=== PATIENT | male | born 1955 | race Caucasian/White ===

== ENCOUNTER 2023-02-01 10:25 | Emergency (ER) | payer MEDICARE, BC ==
[2023-02-01 10:54] VITALS: BP 98/66; TEMP 98
--- NOTE | 2023-02-01 12:44 | ED ---
General Adult HPI - General Chief complaint: Urogenital Stated complaint: Retaining Urine Time Seen by Provider: 02/01/23 11:04 Source: patient, RN notes reviewed Mode of arrival: ambulatory Limitations: no limitations - History of Present Illness Initial comments: 67-year-old male with no significant past medical history presents the emergency department with a chief complaint of urinary retention. She reports that he has had increased urinary frequency over the last couple weeks prompting him to make an appointment with a urologist. He reports that he has not had a true urinary void since yesterday morning. It is been approximately 24 hours. He denies any known fevers, chills, flank pain, nausea, vomiting. Patient reports he will see a urologist tomorrow. - Related Data Allergies Allergy/AdvReac Type Severity Reaction Status Date / Time No Known Allergies Allergy Verified 02/01/23 10:34 Review of Systems ROS Statement: Those systems with pertinent positive or pertinent negative responses have been documented in the HPI. ROS Other: All systems not noted in ROS Statement are negative. Past Medical History Past Medical History: COPD History of Any Multi-Drug Resistant Organisms: None Reported Past Surgical History: Appendectomy Past Psychological History: No Psychological Hx Reported Smoking Status: Current every day smoker Past Alcohol Use History: Rare Past Drug Use History: Marijuana General Exam - General Exam Comments Initial Comments: General: Alert, in no acute distress Head: atraumatic normocephalic. Eyes PERRL, EOMI intact, mucous membranes moist Respiratory: Lungs clear to auscultation bilaterally Cardiovascular: Regular rate and rhythm Abdominal: Soft without guarding or rebound Extremities: Normal inspection with full range of motion and normal capillary refill Neuroogic: alert and oriented 3, CN II-XII intact, able to ambulate with steady gait Skin: warm dry and intact with normal color Fully back with approximately 1400 mL of dark, brooke urine Limitations: no limitations Course Vital Signs 02/01/23 02/01/23 10:32 13:22 Temperature 98 F Pulse Rate 121 H 103 H Respiratory 18 20 Rate Blood Pressure 98/66 O2 Sat by Pulse 94 L 95 Oximetry Medical Decision Making - Medical Decision Making Was pt. sent in by a medical professional or institution (, PA, GIS SCIENTIST, urgent care, hospital, or senior care...) When possible be specific @ -[No] Did you speak to anyone other than the patient for history (EMS, parent, family, police, friend...)? What history was obtained from this source @ -[No] Did you review nursing and triage notes (agree or disagree)? Why? @ -[I reviewed and agree with nursing and triage notes] Were old charts reviewed (outside hosp., previous admission, EMS record, old EKG, old radiological studies, urgent care reports/EKG's, senior care records)? Report findings @ -[No old charts were reviewed] Differential Diagnosis (chest pain, altered mental status, abdominal pain women, abdominal pain men, vaginal bleeding, weakness, fever, dyspnea, syncope, hea dache, dizziness, GI bleed, back pain, seizure, CVA, palpatations, mental health, musculoskeletal)? @ -[not applicable] EKG interpreted by me (3pts min.). @ -[As above] X-rays interpreted by me (1pt min.). @ -[None done] CT interpreted by me (1pt min.). @ -[None done] U/S interpreted by me (1pt. min.). @ -[None done] What testing was considered but not performed or refused? (CT, X-rays, U/S, labs)? Why? @ -[None] What meds were considered but not given or refused? Why? @ -[None] Did you discuss the management of the patient with other professionals (professionals i.e. , PA, GIS SCIENTIST, lab, RT, psych nurse, psychiatric social worker, lens blocker, teacher, commercial account officer, mattress spring encaser)? Give summary @ -[No] Was smoking cessation discussed for >3mins.? @ -[No] Was critical care preformed (if so, how long)? @ -[No] Were there social determinants of health that impacted care today? How? (Homelessness, low income, unemployed, alcoholism, drug addiction, transportation, low edu. Level, literacy, decrease access to med. care, group home, rehab)? @ -[No] Was there de-escalation of care discussed even if they declined (Discuss DNR or withdrawal of care, Hospice)? DNR status @ -[No] What co-morbidities impacted this encounter? (DM, HTN, Smoking, COPD, CAD, Cancer, CVA, ARF, Chemo, Hep., AIDS, mental health diagnosis, sleep apnea, morbid obesity)? @ -[None] Was patient admitted / discharged? Hospital course, mention meds given and route, prescriptions, significant lab abnormalities, going to OR and other pertinent info. @ Discharged. This is a 67-year-old male who presents the emergency department with urinary retention. Patient's initial bladder scan over 900. Patient had Zavaleta placed with approximately 1400 mL of dark, clear urine output. Patient tolerated well. Patient has urology appointment tomorrow. Urinalysis is negative for nitrates, leukocyte esterase however there is trace bacteria. Cultures pending. Patient be discharged home in stable condition. Return precautions discussed. Case discussed with Dr. noble Terrance who agrees with plan of care Undiagnosed new problem with uncertain prognosis? @ -[No] Drug Therapy requiring intensive monitoring for toxicity (Heparin, Nitro, Insulin, Cardizem)? @ -[No] Were any procedures done? @ -[No] Diagnosis/symptom? @ -Urinary Retention Acute, or Chronic, or Acute on Chronic? @ -Acute Uncomplicated (without systemic symptoms) or Complicated (systemic symptoms)? @ -Uncomplicated Side effects of treatment? @ -[No] Exacerbation, Progression, or Severe Exacerbation? @ -[No] Poses a threat to life or bodily function? How? (Chest pain, USA, ID, pneumonia, PE, COPD, DKA, ARF, appy, cholecystitis, CVA, Diverticulitis, Homicidal, Suicidal, threat to staff... and all critical care pts) @ -Low likelihood - Lab Data Lab Results 02/01/23 Range/Units 11:34 Urine Color Light [place] Urine Appearance Clear (Clear) Urine pH 5.5 (5.0-8.0) Ur Specific [place] >1.030 (1.001-1.035) Urine Protein Trace H (Negative) Urine Glucose (UA) Negative (Negative) Urine Ketones Trace (Negative) Urine Blood Moderate (Negative) Urine Nitrite Negative (Negative) Urine Bilirubin Negative (Negative) Urine Urobilinogen <2.0 (<2.0) mg/dL Ur Leukocyte Esterase Negative (Negative) Urine RBC 22 H (0-5) /hpf Urine WBC 1 (0-5) /hpf Urine Bacteria Rare H (None) /hpf Hyaline Casts 3 H (0-2) /lpf Urine Mucus Few H (None) /hpf Disposition Clinical Impression: Urinary retention Disposition: HOME SELF-CARE Condition: Stable Instructions (If sedation given, give patient instructions): Urinary Retention in Men (ED), Enlarged Prostate (BPH) (ED), Zavaleta Catheter Placement and Care (ED), How to Change a Catheter Drainage Bag (DC) Additional Instructions: Please follow up with Urologist tomorrow Please return to the emergency department if fever or bloody urine develop Is patient prescribed a controlled substance at d/c from ED?: No Referrals: Nabil Henson [Primary Care Provider] - 1-2 days Time of Disposition: 12:44
[2023-02-01 12:54] LABS: Bacteria,Urine Rare /hpf; Hyaline Casts,Urine 3 /lpf (0-2); Mucus,Urine Few /hpf; RBC,Urine 22 /hpf (0-5); WBC,Urine 1 /hpf (0-5)
[2023-02-01 12:57] LABS: Appearance,Urine Clear (Clear); Color,Urine Light Orange; PH, Urine 5.5 (5.0-8.0); Protein,Urine Trace (Negative); Specific Gravity,Urine >1.030 (1.001-1.035)
[2023-02-01 12:58] LABS: Bilirubin,Urine Negative (Negative); Blood,Urine Moderate (Negative); Glucose,Urine (UA) Negative (Negative); Ketones,Urine Trace (Negative); Leukocyte Esterase,Urine Negative (Negative); Nitrite,Urine Negative (Negative); Urobilinogen,Urine <2.0 mg/dL (<2.0)
[2023-02-01 13:34] VITALS: PULSE 103; RESP 20
== END 2023-02-01 13:23 | disposition home or self-care (01) ==
LOC: EC 10:25
DX: R33.9 Retention of urine, unspecified (principal); J44.9 Chronic obstructive pulmonary disease, unspecified; F17.200 Nicotine dependence, unspecified, uncomplicated; F12.90 Cannabis use, unspecified, uncomplicated
CPT/HCPCS: 81001; 99283

== ENCOUNTER 2023-02-04 21:10 | Inpatient (IN) | payer MEDICARE, BC ==
--- NOTE | 2023-02-04 21:25 | ED ---
Chest Pain HPI - General Stated Complaint: BERNABE Time Seen by Provider: 02/04/23 21:18 Source: RN notes reviewed, old records reviewed Mode of arrival: EMS Limitations: altered mental status, physical limitation - History of Present Illness Initial Comments: This is a 67-year-old male DF for significant chest pain shortness of breath feeling of near syncope. Patient's brought in by EMS for the symptoms. Patient is found to be in significant SVT heart rate in the 200s prior to arrival. That spontaneous resolved. Getting IV with EMS and patient presents for persistent persistent chest pain shortness of breath, no heart history no history of S PT or arrhythmia, no recent fevers cough or congestion patient does have shortness of breath with history of COPD MD Complaint: chest pain -: hour(s) Onset: during rest, during exertion Pain Location: substernal Pain Radiation: none Severity: severe Severity scale (1-10): 10 Quality: tightness, heaviness Consistency: constant Improves With: nothing Worsens With: nothing Context: recent illness Anginal Symptoms: nausea, diaphoresis, dyspnea, sense of impending doom Other Symptoms: palpitations Treatments Prior to Arrival: none - Related Data Home Medications Medication Instructions Recorded Confirmed Albuterol Sulfate [Albuterol 2 puff PO RT-Q4H PRN 02/05/23 02/05/23 Sulfate Hfa] Ipratropium Nebulized [Atrovent 0.5 mg INHALATION RT-Q8H 02/05/23 02/05/23 Nebulized 0.2 MG/ML] Tamsulosin HCl [Flomax] 0.4 mg PO DAILY 02/05/23 02/05/23 Previous Rx's Medication Instructions Recorded Benzonatate [Tessalon Perles] 100 mg PO TID PRN #10 cap 02/07/23 Metoprolol Tartrate [Lopressor] 25 mg PO BID #60 tab 02/07/23 Nicotine 21Mg/24Hr Patch [Habitrol] 1 patch TRANSDERM DAILY #5 patch 02/07/23 Omeprazole [PriLOSEC] 20 mg PO AC-BID #60 cap 02/07/23 predniSONE 10 mg PO DIRECTED #40 tab 02/07/23 Allergies Allergy/AdvReac Type Severity Reaction Status Date / Time No Known Allergies Allergy Verified 02/05/23 08:00 Review of Systems ROS Statement: Those systems with pertinent positive or pertinent negative responses have been documented in the HPI. ROS Other: All systems not noted in ROS Statement are negative. EKG Findings - EKG Comments: EKG Findings:: EKG is sinus tachycardia 116 LA 150 QRS 71 QTC 344 Past Medical History Past Medical History: COPD History of Any Multi-Drug Resistant Organisms: None Reported Past Surgical History: Appendectomy Past Psychological History: No Psychological Hx Reported Smoking Status: Current every day smoker Past Alcohol Use History: Rare Past Drug Use History: Marijuana General Exam General appearance: alert, in no apparent distress, anxious, in distress Head exam: Present: atraumatic, normocephalic, normal inspection Eye exam: Present: normal appearance, PERRL, EOMI. Absent: scleral icterus, conjunctival injection, periorbital swelling ENT exam: Present: normal exam, mucous membranes moist Neck exam: Present: normal inspection. Absent: tenderness, meningismus, lymphadenopathy Respiratory exam: Present: normal lung sounds bilaterally. Absent: respiratory distress, wheezes, rales, rhonchi, stridor Cardiovascular Exam: Present: normal rhythm, tachycardia, normal heart sounds. Absent: systolic murmur, diastolic murmur, rubs, gallop, clicks GI/Abdominal exam: Present: soft, normal bowel sounds. Absent: distended, tenderness, guarding, rebound, rigid Extremities exam: Present: normal inspection, full ROM, normal capillary refill. Absent: tenderness, pedal edema, joint swelling, calf tenderness Back exam: Present: normal inspection Neurological exam: Present: alert, oriented X3, CN II-XII intact Psychiatric exam: Present: normal affect, normal mood Skin exam: Present: warm, dry, intact, normal color. Absent: rash Course Vital Signs 02/04/23 02/04/23 02/04/23 21:13 22:18 22:29 Temperature 97.7 F Pulse Rate 119 H 108 H 114 H Respiratory 24 Rate Blood Pressure 165/98 O2 Sat by Pulse 98 Oximetry 02/04/23 02/05/23 02/05/23 23:00 00:00 00:54 Temperature 98.0 F Pulse Rate 100 109 H 105 H Respiratory 28 H 21 18 Rate Blood Pressure 133/73 156/78 146/78 O2 Sat by Pulse 96 95 97 Oximetry 02/05/23 02/05/23 02/05/23 00:56 01:04 02:00 Temperature Pulse Rate 109 H 110 H 97 Respiratory 20 Rate Blood Pressure 121/60 O2 Sat by Pulse 97 Oximetry 02/05/23 02/05/23 02/05/23 04:15 04:26 08:00 Temperature Pulse Rate 112 H 114 H 115 H Respiratory 32 H Rate Blood Pressure 163/75 O2 Sat by Pulse 90 L Oximetry 02/05/23 02/05/23 02/05/23 08:02 08:15 09:00 Temperature Pulse Rate 114 H 112 H 100 Respiratory 24 Rate Blood Pressure 110/60 O2 Sat by Pulse 94 L 92 L Oximetry 02/05/23 02/05/23 02/05/23 10:00 11:14 11:29 Temperature Pulse Rate 92 101 H 102 H Respiratory 24 Rate Blood Pressure 117/60 O2 Sat by Pulse 97 Oximetry 02/05/23 02/05/23 02/05/23 13:00 14:00 15:22 Temperature Pulse Rate 105 H 98 89 Respiratory 20 20 23 Rate Blood Pressure 126/67 165/86 156/68 O2 Sat by Pulse 95 96 96 Oximetry 02/05/23 02/05/23 15:30 15:43 Temperature Pulse Rate 92 98 Respiratory Rate Blood Pressure O2 Sat by Pulse Oximetry - Reevaluation(s) Reevaluation #1: 02/04/23 23:22 Medical record is reviewed Reevaluation #2: 02/04/23 23:22 Patient symptoms are improving, no recurrent SVT was so short of breath chest pain Reevaluation #3: 02/04/23 23:22 Patient informed of results and questions answered Reevaluation #4: 02/04/23 23:22 Was pt. sent in by a medical professional or institution (, PA, CATERER'S AIDE, urgent care, hospital, or halfway...) When possible be specific @ -no Did you speak to anyone other than the patient for history (EMS, parent, family, police, friend...)? What history was obtained from this source @ -no Did you review nursing and triage notes (agree or disagree)? Why? @ -agree Are old charts reviewed (outside hosp., previous admission, EMS record, old EKG, old radiological studies, urgent care reports/EKG's, halfway records)? Report findings @ -yes Differential Diagnosis (chest pain, altered mental status, abdominal pain women, abdominal pain men, vaginal bleeding, weakness, fever, dyspnea, syncope, headache, dizziness, GI bleed, back pain, seizure, CVA, palpatations, mental health, musculoskeletal)? @ -prior EKG interpreted by me (3pts min.). @ -yes X-rays interpreted by me (1pt min.). @ -yes CT interpreted by me (1pt min.). @ -no U/S interpreted by me (1pt. min.). @ -no What testing was considered but not performed or refused? (CT, X-rays, U/S, labs)? Why? @ -none What meds were considered but not given or refused? Why? @ -none Did you discuss the management of the patient with other professionals (professionals i.e. , PA, CATERER'S AIDE, lab, RT, psych nurse, social science teacher, freezer machine operator, teacher, zoology technical officer, casework specialist)? Give summary @ -no Was smoking cessation discussed for >3mins.? @ -no Was critical care preformed (if so, how long)? @ -yes31 Were there social determinants of health that impacted care today? How? (Homelessness, low income, unemployed, alcoholism, drug addiction, transportation, low edu. Level, literacy, decrease access to med. care, halfway, rehab)? @ -none Was there de-escalation of care discussed even if they declined (Discuss DNR or withdrawal of care, Hospice)? DNR status @ -no What co-morbidities impacted this encounter? (DM, HTN, Smoking, COPD, CAD, Cancer, CVA, ARF, Chemo, Hep., AIDS, mental health diagnosis, sleep apnea, morbid obesity)? @ -none Was patient admitted / discharged? Hospital course, mention meds given and route, prescriptions, significant lab abnormalities, going to OR and other pertinent info. @ - 67 male to the ER for evaluation of shortness of breath found to be in SVT, patient comes in for persistent shortness breath and tachycardia here in the ER with significant COPD exacerbation, he will be admitted for cardiology evaluation regarding COPD and monitoring of chest pain as well as breathing issues Admitted Undiagnosed new problem with uncertain prognosis? @ -no Drug Therapy requiring intensive monitoring for toxicity (Heparin, Nitro, Insul in, Cardizem)? @ -no Were any procedures done? @ -no Diagnosis/symptom? @ -Chest pain, SVT, COPD Acute, or Chronic, or Acute on Chronic? @ -Acute Uncomplicated (without systemic symptoms) or Complicated (systemic symptoms)? @ -Complicated Side effects of treatment? @ -no Exacerbation, Progression, or Severe Exacerbation? @ -exacerbation Poses a threat to life or bodily function? How? (Chest pain, USA, MS, pneumonia, PE, COPD, DKA, ARF, appy, cholecystitis, CVA, Diverticulitis, Homicidal, Suicidal, threat to staff... and all critical care pts) @ -yes Reevaluation #5: 02/04/23 23:22 Differential Dyspnea: Coronary syndrome, arrhythmia, tamponade, asthma, COPD, pulmonary embolism, pneumonia, pneumothorax, pulmonary effusion, anaphylaxis, diabetic ketoacidosis, flailed chest, pulmonary contusion, diaphragmatic rupture, anemia, neuromuscular, this is not meant to be an all-inclusive list. Differential Chest Pain: Stable Angina, Unstable Angina, STEMI, NSTEMI Aortic Dissection, Pneumothorax, Musculoskeletal, Esophageal Spasm GERD, Cholecystitis, Pancreatitis, Zoster, this is not meant to be an all-inclusive list. Differential Palpitations Ventricular arrhythmias, atrial arrhythmias, myocardial infarction, anemia, thyrotoxicosis, electrolyte imbalance, hypokalemia, pulmonary embolism, pulmonary disease, drugs, alcohol, anxiety, stress.... This is not meant to be an all-inclusive list. - Consultations Consultation #1: Spoke with [facility] were agrees to admit this patient Chest Pain MDM - MDM 67 male to the ER for evaluation of shortness of breath found to be in SVT, patient comes in for persistent shortness breath and tachycardia here in the ER with significant COPD exacerbation, he will be admitted for cardiology evaluation regarding COPD and monitoring of chest pain as well as breathing issues Critical Care Time Critical Care Time: Yes Total Critical Care Time: 31 Disposition Clinical Impression: SVT (supraventricular tachycardia), Acute exacerbation of chronic obstructive pulmonary disease, Chest pain Disposition: ADMITTED IP TO THIS HOSP Condition: Serious Is patient prescribed a controlled substance at d/c from ED?: No Time of Disposition: 23:30
[2023-02-04] MEDS ORDERED: SODIUM CHLORIDE 0.9% 1,000 ML IV STA ×2 (21:55)
[2023-02-04] MEDS ORDERED: IPRATROPIUM-ALBUTEROL 3 ML NEB INHALATION STA (21:57)
[2023-02-04 22:19] LABS: Basophils # (A) 0.1 k/uL (0-0.2); Basophils % (A) 1 %; Eosinophils # (A) 1.8 k/uL (0-0.7); Eosinophils % (A) 17 %; HCT 44.4 % (39.0-53.0); HGB 14.6 gm/dL (13.0-17.5); Lymphocytes # (A) 1.8 k/uL (1.0-4.8); Lymphocytes % (A) 17 %; MCH 31.4 pg (25.0-35.0); MCHC 32.9 g/dL (31.0-37.0); MCV 95.7 fL (80.0-100.0); Mean Platelet Volume 7.9; Monocytes % (A) 10 %; Neutrophils # (A) 5.7 k/uL (1.3-7.7); Neutrophils % (A) 53 %; Platelet Count 282 k/uL (150-450); RBC 4.64 m/uL (4.30-5.90); RDW 12.7 % (11.5-15.5); WBC 10.7 k/uL (3.8-10.6)
[2023-02-04 22:30] LABS: ALT 29 U/L (4-49); AST 30 U/L (17-59); African American GFR (CKD) >90 (>60 ml/min/1.73 sqM); Albumin 3.8 g/dL (3.5-5.0); Alkaline Phosphatase 65 U/L (38-126); Anion Gap 12 mmol/L; Blood Urea Nitrogen 20 mg/dL (9-20); Calcium 9.1 mg/dL (8.4-10.2); Carbon Dioxide 25 mmol/L (22-30); Chloride 103 mmol/L (98-107); Glucose 118 mg/dL (74-99); Magnesium 2.3 mg/dL (1.6-2.3); Non-African American GFR(CKD) 82 (>60 ml/min/1.73 sqM); Phosphorus 5.2 mg/dL (2.5-4.5); Potassium 4.2 mmol/L (3.5-5.1); Sodium 140 mmol/L (137-145); Total Bilirubin 0.3 mg/dL (0.2-1.3); Total Protein 6.3 g/dL (6.3-8.2)
[2023-02-04 22:38] LABS: NT-Pro-B-Type Natriuretic Pept 83 pg/mL
--- NOTE | 2023-02-04 22:51 | XR ---
EXAM: XR chest 1V portable CLINICAL INDICATION:Male, 67 years old with history of sob; came in by [facility]MS, had SVT under 1 minute an d converted himself COMPARISON: None. TECHNIQUE: Chest single view. FINDINGS: Lines/tubes/devices: EKG leads overlie the chest. No indwelling lines are seen. Cardiomediastinum: Cardiac silhouette appears normal in size. Partially calcified mildly tortuous aorta. Pulmonary arteries appear mildly prominent; early pulmonar y arterial hypertension is possible. Vasculature: No pulmonary venous congestion. Lungs/pleura: No consolidation, sizeable effusion, or visible pneumothorax. Lungs appear somewhat hyperinflated wit h coarsening of the interstitium, COPD is a consideration. Bones/soft tissues: Bony thorax appears grossly intact as seen. Regional soft tissues appear unremarkable. IMPRESSION: No acute cardiopulmonary findings.
[2023-02-04 23:00] LABS: INR 0.9 (<1.2); Prothrombin Time 10.1 sec (10.0-12.5)
[2023-02-04 23:10] LABS: Partial Thromboplastin Time 20.1 sec (22.0-30.0)
[2023-02-04] MEDS ORDERED: ONDANSETRON 4 MG/2 ML VIAL IVP PRN (23:29)
[2023-02-04] MEDS ORDERED: MORPHINE SULFATE 4 MG/ML SYRINGE IV PRN (23:29)
[2023-02-04] MEDS ORDERED: NALOXONE 0.4 MG/ML 1 ML VIAL IV PRN (23:29)
[2023-02-04] MEDS ORDERED: ALBUTEROL NEBULIZED 2.5 MG/3 ML INHALATION PRN (23:29)
[2023-02-05] MEDS: SODIUM CHLORIDE 0.9% 1,000 ML IV SCH ×3 (00:33→15:37)
[2023-02-05] MEDS: IPRATROPIUM-ALBUTEROL 3 ML NEB INHALATION SCH ×6 (00:55→23:20)
[2023-02-05 03:28] LABS: Basophils # (A) 0.1 k/uL (0-0.2); Basophils % (A) 1 %; Eosinophils # (A) 1.7 k/uL (0-0.7); Eosinophils % (A) 17 %; HCT 43.8 % (39.0-53.0); HGB 14.3 gm/dL (13.0-17.5); Lymphocytes # (A) 1.3 k/uL (1.0-4.8); Lymphocytes % (A) 13 %; MCH 31.6 pg (25.0-35.0); MCHC 32.5 g/dL (31.0-37.0); MCV 97.2 fL (80.0-100.0); Mean Platelet Volume 7.9; Monocytes # (A) 0.9 k/uL (0-1.0); Monocytes % (A) 9 %; Neutrophils # (A) 5.6 k/uL (1.3-7.7); Neutrophils % (A) 56 %; Platelet Count 260 k/uL (150-450); RBC 4.51 m/uL (4.30-5.90); WBC 9.9 k/uL (3.8-10.6)
[2023-02-05 03:38] LABS: ALT 28 U/L (4-49); AST 28 U/L (17-59); African American GFR (CKD) >90 (>60 ml/min/1.73 sqM); Albumin 3.7 g/dL (3.5-5.0); Alkaline Phosphatase 71 U/L (38-126); Anion Gap 10 mmol/L; Blood Urea Nitrogen 16 mg/dL (9-20); Calcium 8.6 mg/dL (8.4-10.2); Carbon Dioxide 23 mmol/L (22-30); Chloride 106 mmol/L (98-107); Glucose 107 mg/dL (74-99); Lipase 66 U/L (23-300); Magnesium 2.2 mg/dL (1.6-2.3); Non-African American GFR(CKD) >90 (>60 ml/min/1.73 sqM); Phosphorus 4.3 mg/dL (2.5-4.5); Potassium 4.7 mmol/L (3.5-5.1); Sodium 139 mmol/L (137-145); Total Bilirubin 0.3 mg/dL (0.2-1.3); Total Protein 6.1 g/dL (6.3-8.2)
[2023-02-05] MEDS ORDERED: ACETAMINOPHEN TAB 325 MG TAB PO PRN (06:12)
[2023-02-05] MEDS ORDERED: BENZONATATE 100 MG CAP PO PRN (06:12)
[2023-02-05] MEDS ORDERED: MORPHINE SULFATE 2 MG/ML SYRINGE IV PRN (06:15)
--- NOTE | 2023-02-05 07:14 | P.CNPUL ---
History of Present Illness Consult date: 02/05/23 Requesting physician: Gabe Johnston Reason for consult: dyspnea Chief complaint: Shortness of breath History of present illness: I am seeing this patient in consultation today 02/05/2023 in the emergency room after he was brought in by EMS with acute shortness of breath. He was also in SVT with a heart rate in the 200s on arrival. This is improved. Patient is a 67-year-old white male with limited past medical history mostly because he does not have an established primary care provider. He has never officially been diagnosed with COPD. He does smoke 1 pack per day. He just recently met with a nurse practitioner out of Dr. Collazo office. Apparently, over the last month or so he's been short of breath. When this started, he did go to urgent care clinic he was prescribed steroids and antibiotics. He says he initially improved, but then over the last 2 weeks he progressively has worsened. He endorses a cough with minimal yellow sputum production. Denies any fevers, chills, chest pain, hemoptysis. He has a Ventolin rescue inhaler at bedside. He also has Flomax. He says he recently was seen by urologist. He was having troubles with urinary retention, and had a indwelling urinary catheter placed. Patient is currently sitting up in bed to the bed, tripoding, audibly wheezing. He is tachypneic. He is on 3 L/m nasal cannula. SpO2 is 93%. BP slightly hypertensive. Heart rate appears sinus tachycardia bedside monitor with a rate of 110 bpm. Chest x-ray on arrival did not show any acute cardiopulmonary process. There is hyperinflation consistent with COPD. CBC on arrival is unremarkable. No leukocytosis. BMP also unremarkable. Normal saline infusing at 130 ML's per hour. Troponin was 0.11 and is down to 0.025. D-dimer not elevated. ECG shows sinus tachycardia without any acute ischemic changes. Patient will be admitted to the hospital. Review of Systems REVIEW OF SYSTEMS: CONSTITUTIONAL: Denies any recent significant weight loss or weight gain. EYES: Denies change in vision. EARS, NOSE, MOUTH, THROAT: Denies headaches, denies sore throat. CARDIOVASCULAR: Denies chest pain, palpitations or syncopal episodes. RESPIRATORY: See HPI GASTROINTESTINAL: Denies change in appetite, abdominal pain, nausea and vomiting, or diarrhea GENITOURINARY: Admits urinary retention, incomplete emptying, urinary frequency. Denies any dysuria or hematuria. Has an indwelling urinary catheter. MUSKULOSKELETAL: Denies pain, denies swelling. INTEGUMENTARY: Denies rash, denies eczema. NEUROLOGICAL: Denies recent memory loss, no recent seizure activity. PSYCHIATRIC: Denies anxiety, denies depression. HEMATOLOGIC/LYMPHATIC: Denies anemia, denies enlarged lymph nodems Past Medical History Past Medical History: COPD History of Any Multi-Drug Resistant Organisms: None Reported Past Surgical History: Appendectomy Past Psychological History: No Psychological Hx Reported Smoking Status: Current every day smoker Past Alcohol Use History: Rare Past Drug Use History: Marijuana Medications and Allergies Allergies Allergy/AdvReac Type Severity Reaction Status Date / Time No Known Allergies Allergy Verified 02/05/23 08:00 Physical Exam Vitals: Vital Signs Temp Pulse Resp BP Pulse Ox 02/05/23 04:26 114 H 02/05/23 04:15 112 H 02/05/23 02:00 97 20 121/60 97 02/05/23 01:04 110 H 02/05/23 00:56 109 H 02/05/23 00:54 105 H 18 146/78 97 02/05/23 00:00 109 H 21 156/78 95 02/04/23 23:00 98.0 F 100 28 H 133/73 96 02/04/23 22:29 114 H 02/04/23 22:18 108 H 02/04/23 21:13 97.7 F 119 H 24 165/98 98 Intake and Output 02/04/23 02/04/23 02/05/23 14:59 22:59 06:59 Other: Weight 81.647 kg GENERAL EXAM: Alert, 67-year-old white male appearing stated age, comfortable in no apparent distress. HEAD: Normocephalic and atraumatic EYES: Normal reaction of pupils, equal size. NOSE: Clear with pink turbinates. THROAT: No erythema or exudates. NECK: No masses, no JVD. CHEST: No chest wall deformity. LUNGS: Equal air entry with no diffuse wheezing heard throughout. On 3 L/m nasal cannula. In a tripod position CVS: S1 and S2 normal with no audible murmur, regular rhythm. No extra heart s ounds. Tachycardic. ABDOMEN: No hepatosplenomegaly, active bowel sounds, no guarding or rigidity. SPINE: No scoliosis or deformity SKIN: No rashes CENTRAL NERVOUS SYSTEM: No focal deficits, tone is normal in all 4 extremities. EXTREMITIES: There is no peripheral edema, clubbing, or cyanosis. Peripheral pulses are intact. Results - Laboratory Findings CBC and BMP: 02/05/23 02:47 02/05/23 02:47 PT/INR, D-dimer PT 10.1 sec (10.0-12.5) 02/04/23 21:56 INR 0.9 (<1.2) 02/04/23 21:56 D-Dimer 0.34 mg/L FEU (<0.60) 02/04/23 21:56 Abnormal lab findings: Abnormal Labs 02/04/23 02/04/23 02/04/23 21:56 21:56 21:56 WBC 10.7 H Eosinophils # 1.8 H APTT 20.1 L Glucose 118 H Phosphorus 5.2 H Troponin I Total Protein 02/05/23 02/05/23 02/05/23 00:32 02:47 02:47 WBC Eosinophils # 1.7 H APTT Glucose 107 H Phosphorus Troponin I 0.111 H* Total Protein 6.1 L - Diagnostic Findings Chest x-ray: image reviewed Assessment and Plan Assessment: acute COPD exacerbation, chest x-ray shows no acute cardiopulmonary or evidence of pneumonia. Acute hypoxemic respiratory failure, secondary to above Chronic ongoing tobacco dependence SVT, self-limiting, likely exacerbated by above Urinary retention, currently has indwelling urinary catheter Plan: Patient's medications, labs, chest x-ray reviewed Continue supplemental oxygen Patient was started on a combination of DuoNeb's, Symbicort inhaler, and IV Solu-Medrol. Patient also empirically covered on azithromycin. Smoking cessation counseling performed. nicotine replacement offered Rule out COVID-19, RSV, influenza Patient has an indwelling urinary catheter for urinary retention. He is following outpatient with urologist. We will continue to follow I have personally seen and examined the patient, performed the documentation and the assessment and plan as written. Number of minutes spent on the visit:20 Visit joint evaluation was done along with the nurse practitioner. The patient was has less for an acute COPD exacerbation. Patient is currently on Symbicort, albuterol nebulized treatments [id number] and IV Solu-Medrol 60 mg every 6 hours. The chest x-ray is consistent with COPD. The patient remains on oxygen at 3 L nasal cannula. Echo of the heart was also completed and the patient is a preserved LV function without any valvular abnormalities. The labs are significant. There is some mild troponin leak of 0.111 max, the viral screen was negative. The patient was seen by cardiology. He was started on beta blockers. No other intervention from a cardiac standpoint. Time with Patient: Greater than 30
[2023-02-05] MEDS: PANTOPRAZOLE 40 MG/10 ML VIAL IV SCH (07:58)
[2023-02-05] MEDS: NICOTINE 21MG/24HR PATCH TRANSDERM SCH (07:58)
[2023-02-05] MEDS: guaiFENesin 600 MG TABLET.ER PO SCH ×2 (07:58→20:08)
[2023-02-05] MEDS: METOPROLOL TARTRATE 25 MG TAB PO SCH ×2 (07:58→20:03)
[2023-02-05] MEDS: SYMBICORT 160-4.5 MCG INHALER INHALATION SCH ×2 (08:02→23:20)
[2023-02-05] MEDS ORDERED: ALBUTEROL HFA INHALER INHALATION PRN (08:56)
[2023-02-05] MEDS ORDERED: predniSONE 20 MG TAB PO SCH (09:00)
--- NOTE | 2023-02-05 09:57 | P.CRDCN ---
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 He has a past medical history of severe COPD, benign prostatic hypertrophy. Patient states he initially went to an outpatient clinic in early December due to difficulty breathing and was started on medications for COPD. He also had a recent ER visit when she had a Zavaleta catheter placed and following with urology. We have been asked to evaluate the patient for SVT. Patient states that he has dyspnea with activity. Patient denies having any chest pain, no palpitations. No lightheadedness or dizziness. He states one of his main problems is that he has not slept in the past 3-4 days. Patient drinks a half a pot of coffee per day. He is a smoker 2 packs per day for 50 years. He states he drinks alcohol every few days. Reviewed rhythm strips and patient could have been in SVT, possible venous tach but poor quality of strips. Patient is seen today in the emergency center waiting for a bed on the cardiac stepdown unit. He is status post 2 L of IV fluid and started on nebulizer treatments, Solu-Medrol and Lopressor 25 mg twice daily.. EKG sinus tachycardia at 116 bpm, #2 sinus rhythm at 106 bpm Chest x-ray: No acute process WBC 9.9, hemoglobin 14.3, platelet count 260. INR 0.9. D-dimer 0.34. Lites and renal function normal. Liver function tests are normal. Troponins 0.012, 0.111, 0.025. TSH 1.310. Influenza A, influenced B, RSV, Covid 19 at detected. Home cardiac medications: None Review Of Systems: At the time of my exam: CONSTITUTIONAL: Denies fever or chills. CARDIOVASCULAR: Denies chest pain, Denies shortness of breath, no orthopnea, PND or palpitations. RESPIRATORY: + cough. + Seen GASTROINTESTINAL: Denies abdominal pain, diarrhea, constipation, nausea or vomiting. MUSCULOSKELETAL: Denies myalgias. NEUROLOGIC: Denies numbness, tingling or weakness. ENDOCRINE: Denies fatigue, weight change, polydipsia or polyurina. GENITOURINARY: Denies burning, hematuria or urgency with micturation. HEMATOLOGIC: Denies history of anemia or bleeding. Physical examination: Gen: This is a 67-year-old male resting on the stretcher and appears to be comfortable and in no acute distress VS: reviewed HEENT: Head is atraumatic, normocephalic. Pupils equal, round. Sclerae is anicteric. NECK: Supple. No JVD. LUNGS: Significant bilateral wheezing. No intercostal retractions. HEART: Regular rate and rhythm. No murmur. ABDOMEN: Soft No tenderness. EXTREMITIES: No pedal edema. No calf tenderness. NEUROLOGICAL: Patient is awake, alert and oriented x3. Assessment: Possible SVT versus sinus tach, could not be clearly identified on rhythm strips Acute exacerbation of COPD Tobacco use and dependence Plan: Continue metoprolol 25 mg twice daily TSH within normal limits Obtain 2-D echocardiogram and Doppler study to assess cardiac structure and function Further recommendations to follow based upon clinical course Thank you kindly for this consultation. Nurse practitioner note has been reviewed, I agree with documented findings and plan of care. Patient was seen and examined. Past Medical History Past Medical History: COPD History of Any Multi-Drug Resistant Organisms: None Reported Past Surgical History: Appendectomy Past Psychological History: No Psychological Hx Reported Smoking Status: Current every day smoker Past Alcohol Use History: Rare Past Drug Use History: Marijuana Medications and Allergies Home Medications Medication Instructions Recorded Confirmed Type Albuterol Sulfate [Albuterol 2 puff PO RT-Q4H PRN 02/05/23 02/05/23 History Sulfate Hfa] Ipratropium Nebulized [Atrovent 0.5 mg INHALATION RT-Q8H 02/05/23 02/05/23 History Nebulized 0.2 MG/ML] Tamsulosin HCl [Flomax] 0.4 mg PO DAILY 02/05/23 02/05/23 History Allergies Allergy/AdvReac Type Severity Reaction Status Date / Time No Known Allergies Allergy Verified 02/05/23 08:00 Physical Exam Vitals: Vital Signs Temp Pulse Resp BP Pulse Ox 02/05/23 08:15 112 H 02/05/23 08:02 114 H 94 L 02/05/23 08:00 115 H 32 H 163/75 90 L 02/05/23 04:26 114 H 02/05/23 04:15 112 H 02/05/23 02:00 97 20 121/60 97 02/05/23 01:04 110 H 02/05/23 00:56 109 H 02/05/23 00:54 105 H 18 146/78 97 02/05/23 00:00 109 H 21 156/78 95 02/04/23 23:00 98.0 F 100 28 H 133/73 96 02/04/23 22:29 114 H 02/04/23 22:18 108 H 02/04/23 21:13 97.7 F 119 H 24 165/98 98 Intake and Output 02/04/23 02/05/23 02/05/23 22:59 06:59 14:59 Other: Weight 81.647 kg Results 02/05/23 02:47 02/05/23 02:47 Cardiac Enzymes 02/04/23 02/04/23 02/05/23 Range/Units 21:56 21:56 00:32 AST 30 (17-59) U/L Troponin I <0.012 0.111 H* (0.000-0.034) ng/mL 02/05/23 02/05/23 Range/Units 02:47 02:47 AST 28 (17-59) U/L Troponin I 0.025 (0.000-0.034) ng/mL Coagulation 02/04/23 Range/Units 21:56 PT 10.1 (10.0-12.5) sec APTT 20.1 L (22.0-30.0) sec CBC 02/04/23 02/05/23 Range/Units 21:56 02:47 WBC 10.7 H 9.9 (3.8-10.6) k/uL RBC 4.64 4.51 (4.30-5.90) m/uL Hgb 14.6 14.3 (13.0-17.5) gm/dL Hct 44.4 43.8 (39.0-53.0) % Plt Count 282 260 (150-450) k/uL Comprehensive Metabolic Panel 02/04/23 02/05/23 Range/Units 21:56 02:47 Sodium 140 139 (137-145) mmol/L Potassium 4.2 4.7 (3.5-5.1) mmol/L Chloride 103 106 (98-107) mmol/L Carbon Dioxide 25 23 (22-30) mmol/L BUN 20 16 (9-20) mg/dL Creatinine 0.95 0.70 (0.66-1.25) mg/dL Glucose 118 H 107 H (74-99) mg/dL Calcium 9.1 8.6 (8.4-10.2) mg/dL AST 30 28 (17-59) U/L ALT 29 28 (4-49) U/L Alkaline Phosphatase 65 71 (38-126) U/L Total Protein 6.3 6.1 L (6.3-8.2) g/dL Albumin 3.8 3.7 (3.5-5.0) g/dL Current Medications Generic Name Dose Route Start Last Admin Trade Name Freq PRN Reason Stop Dose Admin Acetaminophen 650 mg 02/05/23 06:12 Acetaminophen Tab 325 Mg Tab PO Q6HR PRN Mild Pain (Scale 1 to 3) Albuterol Sulfate 2.5 mg 02/04/23 23:29 Albuterol Nebulized 2.5 Mg/3 Ml INHALATION RT-QID PRN Shortness Of Breath Or Wheezing Albuterol/Ipratropium 3 ml 02/05/23 00:00 02/05/23 08:02 Ipratropium-Albuterol 3 Ml Neb INHALATION 3 ml RT-Q4H PING Administration Azithromycin 500 mg 02/05/23 09:00 Azithromycin 500 Mg Tab PO 02/07/23 09:01 DAILY [facility] Protocol Benzonatate 100 mg 02/05/23 06:12 Benzonatate 100 Mg Cap PO TID PRN Cough Budesonide/Formoterol Fumarate 2 puff 02/05/23 08:00 02/05/23 08:02 Symbicort 160-4.5 Mcg Inhaler INHALATION 2 puff RT-BID PING Administration Guaifenesin 600 mg 02/05/23 09:00 02/05/23 07:58 Guaifenesin 600 Mg Tablet.Er PO 600 mg Q12HR PING Administration Sodium Chloride 1,000 mls @ 130 mls/hr 02/04/23 23:30 02/05/23 06:54 Saline 0.9% IV 130 mls/hr .Q7H42M PING Administration Methylprednisolone Sodium Succinate 60 mg 02/05/23 12:00 Methylprednisolone Sod Succi 125 Mg/2 Ml Vial IV Q6HR PING Metoprolol Tartrate 25 mg 02/05/23 09:00 02/05/23 07:58 Metoprolol Tartrate 25 Mg Tab PO 25 mg BID PING Administration Morphine Sulfate 1 mg 02/05/23 06:15 Morphine Sulfate 2 Mg/Ml Syringe IV Q4HR PRN Severe Pain (Scale 7 to 10) Naloxone HCl 0.2 mg 02/04/23 23:29 Naloxone 0.4 Mg/Ml 1 Ml Vial IV Q2M PRN Opioid Reversal Nicotine 1 patch 02/05/23 09:00 02/05/23 07:58 Nicotine 21mg/24hr Patch TRANSDERM 1 patch DAILY IPNG Administration Ondansetron HCl 4 mg 02/04/23 23:29 Ondansetron 4 Mg/2 Ml Vial IVP Q8HR PRN Nausea And Vomiting Pantoprazole Sodium 40 mg 02/05/23 09:00 02/05/23 07:58 Pantoprazole 40 Mg/10 Ml Vial IV 40 mg DAILY PING Administration Intake and Output 02/04/23 02/05/23 02/05/23 22:59 06:59 14:59 Other: Weight 81.647 kg 02/05/23 02:47 02/05/23 02:47
[2023-02-05] MEDS: TAMSULOSIN 0.4 MG CAP.ER.24H PO SCH (10:06)
[2023-02-05] MEDS: AZITHROMYCIN 500 MG TAB PO SCH (10:06)
--- NOTE | 2023-02-05 11:51 | CA ---
Transthoracic Echo Report Name: Vladimir Wolf Age: 67 Gender: M : 1955 Exam Date: 02/05/2023 09:42 Exam Location: [facility] Ht (in): 71 Wt (lb): 180 Ordering Physician: Angie Chou Attending/Referring Phys: [id number], José Antonio [employer] Operations Manager Kim Montoya RDCS Procedure CPT: Indications: LVF Cardiac Hx: Technical Quality: Very technically difficult study Contrast 1: Definity Total Dose (mL): 2 Contrast 2: Total Dose (mL): MEASUREMENTS (Male / Female) Normal Values 2D ECHO LV Diastolic Diameter PLAX 4.1 cm 4.2 - 5.9 / 3.9 - 5.3 cm LV Systolic Diameter PLAX 3.0 cm IVS Diastolic Thickness 1.1 cm 0.6 - 1.0 / 0.6 - 0.9 cm LVPW Diastolic Thickness 0.8 cm 0.6 - 1.0 / 0.6 - 0.9 cm LV Relative Wall Thickness 0.5 RV Internal Dim ED PLAX 2.7 cm LA Systolic Diameter LX 3.6 cm 3.0 - 4.0 / 2.7 - 3.8 cm M-MODE Aortic Root Diameter MM 3.5 cm AV Cusp Separation MM 2.1 cm DOPPLER AV Peak Velocity 138.7 cm/s AV Peak Gradient 7.7 mmHg MV Area PHT 5.1 cm??? Mitral E Point Velocity 95.4 cm/s Mitral A Point Velocity 100.0 cm/s Mitral E to A Ratio 1.0 MV Deceleration Time 150.0 ms FINDINGS Left Ventricle Left ventricular ejection fraction is estimated at 55-60 %. Left ventricular cavity size normal. Left ventricular wall thickness normal. Right Ventricle Normal right ventricular size. Unable to estimate the right ventricular systolic pressure. Right Atrium Right atrium not well visualized. Left Atrium Normal left atrial size. Mitral Valve Mitral valve not well visualized. No mitral stenosis, regurgitation or prolapse. Aortic Valve Aortic valve not well visualized. No aortic valve stenosis or regurgitation. Tricuspid Valve Tricuspid valve not well visualized. Pulmonic Valve Pulmonic valve not well visualized. Pericardium No pericardial effusion. Aorta Normal size aortic root and proximal ascending aorta. CONCLUSIONS Technically very difficult study for interpretation Probably normal LV systolic function Previewed by: Dr. Marv El MD (Electronically Signed) Final Date: 05 February 2023 11:51
[2023-02-05] MEDS: methylPREDNISolone SOD SUCCI 125 MG/2 ML VIAL IV SCH ×2 (13:08→17:29)
--- NOTE | 2023-02-05 13:34 | P.HPIM ---
History of Present Illness H&P Date: 02/05/23 Chief Complaint: Shortness of breath * 67-year-old gentleman with past medical history significant for chronic smoking, presents to the emergency department with complains of shortness of breath and palpitations. Patient has been having shortness of breath for the last 1 month he was prescribed steroids and antibiotic recently for these symptoms. Patient states initially his symptoms improved however for the last 2 weeks he has been getting progressively worse. Patient states he has recently followed up with the nurse practitioner outpatient however he does not have an established primary care physician. Patient does take Flomax at home and does have history of urinary retention and was following up with neurology and her indwelling Zavaleta catheter placed * At the time of presentation in ER workup included an EKG which showed sinus tachycardia with heart rate in 116, blood work obtained included WBC which was 10.7 hemoglobin 14.6 platelet 282 * PT/INR 0.9, d-dimer 0.34 * Serum chemistry shows sodium 140 potassium 4.2 BU and 20 creatinine 0.95 glucose 118 phosphorous 5.2 * Initial troponin within normal limits, N-terminal proBNP 83 TSH 1.310 follow- up troponin was 0.111 however repeat was obtained which was 0.0-5 * Patient tested negative for influenza and Covid and RSV * While in ER patient was given breathing treatment including DuoNeb and 1 L fluid bolus * Patient admitted to medical floor with consultation from pulmonary medicine and cardiology REVIEW OF SYSTEMS: Shortness of breath, palpitations CONSTITUTIONAL: No fever, no malaise, no fatigue. HEENT: No recent visual problems or hearing problems. Denied any sore throat. CARDIOVASCULAR:Shortness of breath, palpitations PULMONARY: Shortness of breath, palpitations GASTROINTESTINAL: No diarrhea, no nausea, no vomiting, no abdominal pain. NEUROLOGICAL: No headaches, no weakness, no numbness. HEMATOLOGICAL: Denies any bleeding or petechiae. GENITOURINARY: Denies any burning micturition, frequency, or urgency. MUSCULOSKELETAL/RHEUMATOLOGICAL: Denies any joint pain, swelling, or any muscle pain. ENDOCRINE: Denies any polyuria or polydipsia. PHYSICAL EXAMINATION: GENERAL: The patient is alert and oriented x3, not in any acute distress. Ill appearance, nasal cannula in place HEENT: Pupils are round and equally reacting to light. EOMI. CARDIOVASCULAR: S1 and S2 present. No murmurs, rubs, or gallops. Tachycardia noted PULMONARY: Decreased breath sounds bilaterally, wheezing audible ABDOMEN: Soft, nontender, nondistended, normoactive bowel sounds. No palpable organomegaly. MUSCULOSKELETAL: No joint swelling or deformity. EXTREMITIES: No cyanosis, clubbing, or pedal edema. NEUROLOGICAL: Gross neurological examination did not reveal any focal deficits. SKIN: No rashes. Past Medical History Past Medical History: COPD History of Any Multi-Drug Resistant Organisms: None Reported Past Surgical History: Appendectomy Past Psychological History: No Psychological Hx Reported Smoking Status: Current every day smoker Past Alcohol Use History: Rare Past Drug Use History: Marijuana Medications and Allergies Home Medications Medication Instructions Recorded Confirmed Type Albuterol Sulfate [Albuterol 2 puff PO RT-Q4H PRN 02/05/23 02/05/23 History Sulfate Hfa] Ipratropium Nebulized [Atrovent 0.5 mg INHALATION RT-Q8H 02/05/23 02/05/23 History Nebulized 0.2 MG/ML] Tamsulosin HCl [Flomax] 0.4 mg PO DAILY 02/05/23 02/05/23 History Allergies Allergy/AdvReac Type Severity Reaction Status Date / Time No Known Allergies Allergy Verified 02/05/23 08:00 Physical Exam Vitals: Vital Signs Temp Pulse Resp BP Pulse Ox 02/05/23 08:15 112 H 02/05/23 08:02 114 H 94 L 02/05/23 08:00 115 H 32 H 163/75 90 L 02/05/23 04:26 114 H 02/05/23 04:15 112 H 02/05/23 02:00 97 20 121/60 97 02/05/23 01:04 110 H 02/05/23 00:56 109 H 02/05/23 00:54 105 H 18 146/78 97 02/05/23 00:00 109 H 21 156/78 95 02/04/23 23:00 98.0 F 100 28 H 133/73 96 02/04/23 22:29 114 H 02/04/23 22:18 108 H 02/04/23 21:13 97.7 F 119 H 24 165/98 98 Intake and Output 02/04/23 02/05/23 02/05/23 22:59 06:59 14:59 Other: Weight 81.647 kg Results CBC & Chem 7: 02/05/23 02:47 02/05/23 02:47 Labs: Abnormal Lab Results - Last 24 Hours (Table) 02/04/23 02/04/23 02/04/23 Range/Units 21:56 21:56 21:56 WBC 10.7 H (3.8-10.6) k/uL Eosinophils # 1.8 H (0-0.7) k/uL APTT 20.1 L (22.0-30.0) sec Glucose 118 H (74-99) mg/dL Phosphorus 5.2 H (2.5-4.5) mg/dL Troponin I (0.000-0.034) ng/mL Total Protein (6.3-8.2) g/dL 02/05/23 02/05/23 02/05/23 Range/Units 00:32 02:47 02:47 WBC (3.8-10.6) k/uL Eosinophils # 1.7 H (0-0.7) k/uL APTT (22.0-30.0) sec Glucose 107 H (74-99) mg/dL Phosphorus (2.5-4.5) mg/dL Troponin I 0.111 H* (0.000-0.034) ng/mL Total Protein 6.1 L (6.3-8.2) g/dL Assessment and Plan Assessment: Assessment and plan * Acute hypoxic respiratory failure suspected obstructive lung disease * Supraventricular tachycardia * Urinary retention with Zavaleta catheter in place present on admission * Chronic tobacco use * In regards to acute hypoxia, patient seen by pulmonary medicine, started on breathing treatments, continue azithromycin for suspected COPD exacerbation, continue IV Solu-Medrol * In regards to supraventricular tachycardia, patient started on metoprolol, cardiology consulted * In regards to urinary retention patient has a chronic Zavaleta cath in place present on admission to be maintained * In regards to chronic tobacco use nicotine patch ordered * CODE STATUS is full code Time with Patient: Greater than 30
[2023-02-05 20:31] LABS: Glucose,Whole Blood 162 mg/dL (70-110)
[2023-02-06] MEDS: SODIUM CHLORIDE 0.9% 1,000 ML IV SCH ×3 (00:22→18:16)
[2023-02-06] MEDS: methylPREDNISolone SOD SUCCI 125 MG/2 ML VIAL IV SCH ×5 (00:22→23:04)
[2023-02-06] MEDS: IPRATROPIUM-ALBUTEROL 3 ML NEB INHALATION SCH ×6 (00:57→20:53)
[2023-02-06] MEDS: SYMBICORT 160-4.5 MCG INHALER INHALATION SCH ×3 (01:15→20:53)
[2023-02-06 06:13] LABS: Glucose,Whole Blood 179 mg/dL (70-110)
[2023-02-06] MEDS: AZITHROMYCIN 500 MG TAB PO SCH (08:42)
[2023-02-06] MEDS: TAMSULOSIN 0.4 MG CAP.ER.24H PO SCH (08:42)
[2023-02-06] MEDS: PANTOPRAZOLE 40 MG/10 ML VIAL IV SCH (08:42)
[2023-02-06] MEDS: guaiFENesin 600 MG TABLET.ER PO SCH ×2 (08:42→19:38)
[2023-02-06] MEDS: ENOXAPARIN 40 MG/0.4 ML SYRINGE SQ SCH (08:42)
[2023-02-06] MEDS: METOPROLOL TARTRATE 25 MG TAB PO SCH ×2 (08:43→19:38)
[2023-02-06 08:56] LABS: HCT 41.4 % (39.0-53.0); HGB 13.6 gm/dL (13.0-17.5); MCH 31.5 pg (25.0-35.0); MCHC 32.8 g/dL (31.0-37.0); MCV 96.3 fL (80.0-100.0); Mean Platelet Volume 7.8; Platelet Count 306 k/uL (150-450); RDW 12.6 % (11.5-15.5); WBC 7.6 k/uL (3.8-10.6)
[2023-02-06 10:14] LABS: African American GFR (CKD) >90 (>60 ml/min/1.73 sqM); Anion Gap 13 mmol/L; Blood Urea Nitrogen 18 mg/dL (9-20); C Reactive Protein 1.5 mg/dL (<1.0); Carbon Dioxide 21 mmol/L (22-30); Chloride 105 mmol/L (98-107); Glucose 145 mg/dL (74-99); Non-African American GFR(CKD) >90 (>60 ml/min/1.73 sqM); Potassium 4.5 mmol/L (3.5-5.1); Sodium 139 mmol/L (137-145)
--- NOTE | 2023-02-06 11:37 | P.PN ---
Subjective Progress Note Date: 02/06/23 * 67-year-old gentleman with past medical history significant for chronic smoking, presents to the emergency department with complains of shortness of breath and palpitations. Patient has been having shortness of breath for the last 1 month he was prescribed steroids and antibiotic recently for these symp toms. Patient states initially his symptoms improved however for the last 2 weeks he has been getting progressively worse. Patient states he has recently followed up with the nurse practitioner outpatient however he does not have an established primary care physician. Patient does take Flomax at home and does have history of urinary retention and was following up with neurology and her indwelling Zavaleta catheter placed * At the time of presentation in ER workup included an EKG which showed sinus tachycardia with heart rate in 116, blood work obtained included WBC which was 10.7 hemoglobin 14.6 platelet 282 * PT/INR 0.9, d-dimer 0.34 * Serum chemistry shows sodium 140 potassium 4.2 BU and 20 creatinine 0.95 glucose 118 phosphorous 5.2 * Initial troponin within normal limits, N-terminal proBNP 83 TSH 1.310 follow- up troponin was 0.111 however repeat was obtained which was 0.0-5 * Patient tested negative for influenza and Covid and RSV * While in ER patient was given breathing treatment including DuoNeb and 1 L fluid bolus * Patient admitted to medical floor with consultation from pulmonary medicine and cardiology * 02/06/2023: Patient seen and evaluated bedside, patient is alert and oriented 3, breathing has improved. CBC within normal limits, serum chemistry shows slight elevation of CRP 1.5. Continue patient on azithromycin, albuterol as needed, IV Solu-Medrol, patient does have wheezing on exam REVIEW OF SYSTEMS: Shortness of breath, palpitations CONSTITUTIONAL: No fever, no malaise, no fatigue. HEENT: No recent visual problems or hearing problems. Denied any sore throat. CARDIOVASCULAR:Shortness of breath, palpitations PULMONARY: Shortness of breath, palpitations GASTROINTESTINAL: No diarrhea, no nausea, no vomiting, no abdominal pain. NEUROLOGICAL: No headaches, no weakness, no numbness. HEMATOLOGICAL: Denies any bleeding or petechiae. GENITOURINARY: Denies any burning micturition, frequency, or urgency. MUSCULOSKELETAL/RHEUMATOLOGICAL: Denies any joint pain, swelling, or any muscle pain. ENDOCRINE: Denies any polyuria or polydipsia. PHYSICAL EXAMINATION: GENERAL: The patient is alert and oriented x3, not in any acute distress. Ill appearance, nasal cannula in place HEENT: Pupils are round and equally reacting to light. EOMI. CARDIOVASCULAR: S1 and S2 present. No murmurs, rubs, or gallops. Tachycardia improved PULMONARY: Decreased breath sounds bilaterally, wheezing audible ABDOMEN: Soft, nontender, nondistended, normoactive bowel sounds. No palpable organomegaly. MUSCULOSKELETAL: No joint swelling or deformity. EXTREMITIES: No cyanosis, clubbing, or pedal edema. NEUROLOGICAL: Gross neurological examination did not reveal any focal deficits. SKIN: No rashes. Objective - Vital Signs Vital signs: Vital Signs Temp 97.8 F 02/06/23 08:31 Pulse 90 02/06/23 11:33 Resp 18 02/06/23 11:33 BP 122/68 02/06/23 11:33 Pulse Ox 96 02/06/23 11:33 FiO2 Intake & Output 02/05/23 02/06/23 02/06/23 18:59 06:59 18:59 Intake Total 240 540 118 Output Total 801 Balance -561 540 118 Weight 81.647 kg Intake: Oral 240 540 118 Output: Urine 801 Other: Voiding Method Indwelling Catheter Indwelling Catheter Indwelling Catheter # Bowel Movements 1 - Labs CBC & Chem 7: 02/06/23 07:45 02/06/23 07:45 Labs: Abnormal Lab Results - Last 24 Hours (Table) 02/05/23 02/06/23 02/06/23 Range/Units 20:29 06:11 07:45 Carbon Dioxide 21 L (22-30) mmol/L Glucose 145 H (74-99) mg/dL POC Glucose (mg/dL) 162 H 179 H (70-110) mg/dL C-Reactive Protein 1.5 H (<1.0) mg/dL Assessment and Plan Assessment: Assessment and plan * Acute hypoxic respiratory failure suspected obstructive lung disease * Supraventricular tachycardia * Urinary retention with Zavaleta catheter in place present on admission * Chronic tobacco use * In regards to acute hypoxia, patient seen by pulmonary medicine, started on breathing treatments, continue azithromycin for suspected COPD exacerbation, continue IV Solu-Medrol * In regards to supraventricular tachycardia, patient started on metoprolol as admission, cardiology consulted him a echocardiogram ordered, shows preserved ejection fraction * In regards to urinary retention patient has a chronic Zavaleta cath in place present on admission to be maintained, follow-up with urology outpatient * In regards to chronic tobacco use nicotine patch ordered * CODE STATUS is full code Time with Patient: Greater than 30
[2023-02-06 11:56] LABS: Glucose,Whole Blood 183 mg/dL (70-110)
[2023-02-06] MEDS: NICOTINE 21MG/24HR PATCH TRANSDERM SCH (12:08)
--- NOTE | 2023-02-06 13:25 | P.PN ---
Subjective Progress Note Date: 02/06/23 SVT History of present illness: History of present illness: This is a 67-year-old male does not follow with a rn family practice, recently established with PCP. He has a past medical history of severe COPD, benign prostatic hypertrophy. Patient states he initially went to an outpatient clinic in early December due to difficulty breathing and was started on medications for COPD. He also had a recent ER visit when she had a Zavaleta catheter placed and following with urology. We have been asked to evaluate the patient for SVT. Patient states that he has dyspnea with activity. Patient denies having any chest pain, no palpitations. No lightheadedness or dizziness. He states one of his main problems is that he has not slept in the past 3-4 days. Patient drinks a half a pot of coffee per day. He is a smoker 2 packs per day for 50 years. He states he drinks alcohol every few days. Reviewed rhythm strips and patient could have been in SVT, possible venous tach but poor quality of strips. Patient is seen today in the emergency center waiting for a bed on the cardiac s tepdown unit. He is status post 2 L of IV fluid and started on nebulizer treatments, Solu-Medrol and Lopressor 25 mg twice daily.. EKG sinus tachycardia at 116 bpm, #2 sinus rhythm at 106 bpm Chest x-ray: No acute process WBC 9.9, hemoglobin 14.3, platelet count 260. INR 0.9. D-dimer 0.34. Lites and renal function normal. Liver function tests are normal. Troponins 0.012, 0.111, 0.025. TSH 1.310. Influenza A, influenced B, RSV, Covid 19 at detected. Home cardiac medications: None 02/06 Patient is seen today on the cardiac stepdown unit. Patient has been started on metoprolol 25 mg twice daily. Echocardiogram reveals EF of 55-60%, technically difficult study. She is feeling very well today. No new concerns. Heart rate is well controlled. Continues to have wheezing. Physical examination: Gen: This is a 67-year-old male resting on the stretcher and appears to be comfortable and in no acute distress VS: reviewed HEENT: Head is atraumatic, normocephalic. Pupils equal, round. Sclerae is anicteric. NECK: Supple. No JVD. LUNGS: Significant bilateral wheezing. No intercostal retractions. HEART: Regular rate and rhythm. No murmur. ABDOMEN: Soft No tenderness. EXTREMITIES: No pedal edema. No calf tenderness. Assessment: Possible SVT versus sinus tach, could not be clearly identified on rhythm strips Acute exacerbation of COPD Tobacco use and dependence Plan: Continue metoprolol 25 mg twice daily Cardiology will sign off this case and follow on an as-needed basis. Please reconsult for any new concerns. Patient may follow-up in the office in 3-[address] Fagan. Nurse practitioner note has been reviewed, I agree with documented findings and plan of care. Patient was seen and examined. Objective - Vital Signs Vital signs: Vital Signs Temp 97.8 F 02/06/23 08:31 Pulse 83 02/06/23 08:31 Resp 18 02/06/23 08:31 BP 127/69 02/06/23 08:31 Pulse Ox 96 02/06/23 08:31 FiO2 Intake & Output 02/05/23 02/06/23 02/06/23 18:59 06:59 18:59 Intake Total 240 540 118 Output Total 801 Balance -561 540 118 Weight 81.647 kg Intake: Oral 240 540 118 Output: Urine 801 Other: Voiding Method Indwelling Catheter Indwelling Catheter Indwelling Catheter # Bowel Movements 1 - Labs CBC & Chem 7: 02/06/23 07:45 02/06/23 07:45 Labs: Abnormal Lab Results - Last 24 Hours (Table) 02/05/23 02/06/23 02/06/23 Range/Units 20:29 06:11 07:45 Carbon Dioxide 21 L (22-30) mmol/L Glucose 145 H (74-99) mg/dL POC Glucose (mg/dL) 162 H 179 H (70-110) mg/dL C-Reactive Protein 1.5 H (<1.0) mg/dL
--- NOTE | 2023-02-06 14:33 | P.PN ---
Subjective Progress Note Date: 02/06/23 I am seeing this patient in consultation today 02/05/2023 in the emergency room after he was brought in by EMS with acute shortness of breath. He was also in SVT with a heart rate in the 200s on arrival. This is improved. Patient is a 67-year-old white male with limited past medical history mostly because he does not have an established primary care provider. He has never officially been diagnosed with COPD. He does smoke 1 pack per day. He just recently met with a nurse practitioner out of Dr. Collazo office. Apparently, over the last month or so he's been short of breath. When this started, he did go to urgent care clinic he was prescribed steroids and antibiotics. He says he initially improved, but then over the last 2 weeks he progressively has worsened. He endorses a cough with minimal yellow sputum production. Denies any fevers, chills, chest pain, hemoptysis. He has a Ventolin rescue inhaler at bedside. He also has Flomax. He says he recently was seen by urologist. He was having troubles with urinary retention, and had a indwelling urinary catheter placed. Patient is currently sitting up in bed to the bed, tripoding, audibly wheezing. He is tachypneic. He is on 3 L/m nasal cannula. SpO2 is 93%. BP slightly hypertensive. Heart rate appears sinus tachycardia bedside monitor with a rate of 110 bpm. Chest x-ray on arrival did not show any acute cardiopulmonary process. There is hyperinflation consistent with COPD. CBC on arrival is u nremarkable. No leukocytosis. BMP also unremarkable. Normal saline infusing at 130 ML's per hour. Troponin was 0.11 and is down to 0.025. D-dimer not elevated. ECG shows sinus tachycardia without any acute ischemic changes. Patient will be admitted to the hospital. on 02/06/2023, I'm seeing the patient for a follow-up. The patient was hospitalized for worsening shortness of breath and the patient currently is being treated for an acute COPD exacerbation. The patient is doing better co mpared to yesterday. No cough. Still bronchospastic and wheezy at this point in time. No pleurisy. No hemoptysis did no fever or chills to no other significant events overnight. He is currently on bronchodilators. He is also on IV Solu-Medrol. Is a chronic smoker.Limited physical is at 7.6, hemoglobin 13.6 and a platelet count is at 206, BUN is 18 with a creatinine 0.8 and sodium level is at 139. The patient is also on empiric antibiotic coverage with Zithromax. IV fluids is running at 130s and hour. Objective - Vital Signs Vital signs: Vital Signs Temp 97.8 F 02/06/23 08:31 Pulse 83 02/06/23 08:31 Resp 18 02/06/23 08:31 BP 127/69 02/06/23 08:31 Pulse Ox 96 02/06/23 08:31 FiO2 Intake & Output 02/05/23 02/06/23 02/06/23 18:59 06:59 18:59 Intake Total 240 540 118 Output Total 801 Balance -561 540 118 Weight 81.647 kg Intake: Oral 240 540 118 Output: Urine 801 Other: Voiding Method Indwelling Catheter Indwelling Catheter Indwelling Catheter # Bowel Movements 1 - Exam GENERAL EXAM: Alert, 67-year-old white male appearing stated age, comfortable in no apparent distress. HEAD: Normocephalic and atraumatic EYES: Normal reaction of pupils, equal size. NOSE: Clear with pink turbinates. THROAT: No erythema or exudates. NECK: No masses, no JVD. CHEST: No chest wall deformity. LUNGS: Equal air entry with no diffuse wheezing heard throughout. On 3 L/m nasal cannula. In a tripod position CVS: S1 and S2 normal with no audible murmur, regular rhythm. No extra heart sounds. Tachycardic. ABDOMEN: No hepatosplenomegaly, active bowel sounds, no guarding or rigidity. SPINE: No scoliosis or deformity SKIN: No rashes CENTRAL NERVOUS SYSTEM: No focal deficits, tone is normal in all 4 extremities. EXTREMITIES: There is no peripheral edema, clubbing, or cyanosis. Peripheral pulses are intact. - Labs CBC & Chem 7: 02/06/23 07:45 02/06/23 07:45 Labs: Abnormal Lab Results - Last 24 Hours (Table) 02/05/23 02/06/23 02/06/23 Range/Units 20:29 06:11 07:45 Carbon Dioxide 21 L (22-30) mmol/L Glucose 145 H (74-99) mg/dL POC Glucose (mg/dL) 162 H 179 H (70-110) mg/dL C-Reactive Protein 1.5 H (<1.0) mg/dL Assessment and Plan Assessment: acute COPD exacerbation, chest x-ray shows no acute cardiopulmonary or evidence of pneumonia. Acute hypoxemic respiratory failure, secondary to above Chronic ongoing tobacco dependence SVT, self-limiting, likely exacerbated by above Urinary retention, currently has indwelling urinary catheter Plan: clinically improving Continue same treatment Change IV fluids to KVO Continue DuoNeb Continue Solu-Medrol Continue Symbicort Cardiology follow-up regarding troponin leak Echocardiogram shows a preserved LV function We'll continue to follow Wean FiO2 as tolerated to [facility] about 90%
[2023-02-06 16:33] LABS: Glucose,Whole Blood 162 mg/dL (70-110)
[2023-02-06 19:31] LABS: Glucose,Whole Blood 158 mg/dL (70-110)
[2023-02-07] MEDS: IPRATROPIUM-ALBUTEROL 3 ML NEB INHALATION SCH ×6 (00:24→17:59)
[2023-02-07] MEDS: methylPREDNISolone SOD SUCCI 125 MG/2 ML VIAL IV SCH (05:44)
[2023-02-07 06:05] LABS: Glucose,Whole Blood 161 mg/dL (70-110)
[2023-02-07] MEDS: TAMSULOSIN 0.4 MG CAP.ER.24H PO SCH (07:46)
[2023-02-07] MEDS: PANTOPRAZOLE 40 MG/10 ML VIAL IV SCH (07:46)
[2023-02-07] MEDS: ENOXAPARIN 40 MG/0.4 ML SYRINGE SQ SCH (07:47)
[2023-02-07] MEDS: NICOTINE 21MG/24HR PATCH TRANSDERM SCH (07:47)
[2023-02-07] MEDS: AZITHROMYCIN 500 MG TAB PO SCH (07:47)
[2023-02-07] MEDS: METOPROLOL TARTRATE 25 MG TAB PO SCH (07:47)
[2023-02-07] MEDS: guaiFENesin 600 MG TABLET.ER PO SCH (07:47)
[2023-02-07 07:55] VITALS: RESP 16
[2023-02-07] MEDS: SYMBICORT 160-4.5 MCG INHALER INHALATION SCH ×2 (08:51→18:00)
[2023-02-07 09:30] LABS: African American GFR (CKD) >90 (>60 ml/min/1.73 sqM); Anion Gap 14 mmol/L; Blood Urea Nitrogen 20 mg/dL (9-20); C Reactive Protein 0.8 mg/dL (<1.0); Calcium 9.2 mg/dL (8.4-10.2); Carbon Dioxide 23 mmol/L (22-30); Chloride 105 mmol/L (98-107); Glucose 217 mg/dL (74-99); Magnesium 2.5 mg/dL (1.6-2.3); Non-African American GFR(CKD) >90 (>60 ml/min/1.73 sqM); Sodium 142 mmol/L (137-145)
--- NOTE | 2023-02-07 11:06 | P.PN ---
Subjective Progress Note Date: 02/07/23 PROGRESS NOTE The patient is feeling well this morning, anxious to go home. He denies any chest discomfort, dizziness or palpitations. He is ambulating continues to be in sinus mechanism. His echocardiogram showed a preserved systolic function. He does not have any further episodes of tachyarrhythmia. Medications: Albuterol, metoprolol tartrate 25 mg twice a day, PHYSICAL EXAMINATION: Blood pressure 126/60 heart rate 90 LUNGS: Decreased breath sounds with no wheezes HEART: Regular rate and rhythm, S1, S2. No S3. No systolic murmur ABDOMEN: Soft, nontender, no organomegaly EXTREMETIES: No edema LAB: BUN 20, creatinine 0.6, potassium 4.0 IMPRESSION: 1. Dyspnea with exacerbation of COPD 2. Chronic tobacco use 3. Sinus tachycardia related to the COPD 4. Urinary retention PLAN: 1. Continue present therapy 2. Increase physical activity 3. Probable discharge home today 4. And follow-up as an outpatient Objective - Vital Signs Vital signs: Vital Signs Temp 97.6 F 02/07/23 07:43 Pulse 97 02/07/23 09:01 Resp 16 02/07/23 07:45 BP 160/79 02/07/23 07:43 Pulse Ox 98 02/07/23 08:54 FiO2 Intake & Output 02/06/23 02/07/23 02/07/23 18:59 06:59 18:59 Intake Total 718 Output Total 900 Balance -182 Intake: Oral 718 Output: Urine 900 Other: Voiding Method Indwelling Catheter Indwelling Catheter Indwelling Catheter - Labs CBC & Chem 7: 02/06/23 07:45 02/07/23 08:26 Labs: Abnormal Lab Results - Last 24 Hours (Table) 02/06/23 02/06/23 02/06/23 Range/Units 11:43 16:23 19:29 Creatinine (0.66-1.25) mg/dL Glucose (74-99) mg/dL POC Glucose (mg/dL) 183 H 162 H 158 H (70-110) mg/dL Magnesium (1.6-2.3) mg/dL 02/07/23 02/07/23 Range/Units 06:03 08:26 Creatinine 0.60 L (0.66-1.25) mg/dL Glucose 217 H (74-99) mg/dL POC Glucose (mg/dL) 161 H (70-110) mg/dL Magnesium 2.5 H (1.6-2.3) mg/dL
[2023-02-07 11:49] LABS: Glucose,Whole Blood 175 mg/dL (70-110)
[2023-02-07] MEDS ORDERED: predniSONE 20 MG TAB PO SCH (12:00)
--- NOTE | 2023-02-07 14:24 | P.PN ---
Subjective Progress Note Date: 02/07/23 I am seeing this patient in consultation today 02/05/2023 in the emergency room after he was brought in by EMS with acute shortness of breath. He was also in SVT with a heart rate in the 200s on arrival. This is improved. Patient is a 67-year-old white male with limited past medical history mostly because he does not have an established primary care provider. He has never officially been diagnosed with COPD. He does smoke 1 pack per day. He just recently met with a nurse practitioner out of Dr. Collazo office. Apparently, over the last month or so he's been short of breath. When this started, he did go to urgent care clinic he was prescribed steroids and antibiotics. He says he initially improved, but then over the last 2 weeks he progressively has worsened. He endorses a cough with minimal yellow sputum production. Denies any fevers, chills, chest pain, hemoptysis. He has a Ventolin rescue inhaler at bedside. He also has Flomax. He says he recently was seen by urologist. He was having troubles with urinary retention, and had a indwelling urinary catheter placed. Patient is currently sitting up in bed to the bed, tripoding, audibly wheezing. He is tachypneic. He is on 3 L/m nasal cannula. SpO2 is 93%. BP slightly hypertensive. Heart rate appears sinus tachycardia bedside monitor with a rate of 110 bpm. Chest x-ray on arrival did not show any acute cardiopulmonary process. There is hyperinflation consistent with COPD. CBC on arrival is u nremarkable. No leukocytosis. BMP also unremarkable. Normal saline infusing at 130 ML's per hour. Troponin was 0.11 and is down to 0.025. D-dimer not elevated. ECG shows sinus tachycardia without any acute ischemic changes. Patient will be admitted to the hospital. on 02/06/2023, I'm seeing the patient for a follow-up. The patient was hospitalized for worsening shortness of breath and the patient currently is being treated for an acute COPD exacerbation. The patient is doing better co mpared to yesterday. No cough. Still bronchospastic and wheezy at this point in time. No pleurisy. No hemoptysis did no fever or chills to no other significant events overnight. He is currently on bronchodilators. He is also on IV Solu-Medrol. Is a chronic smoker.Limited physical is at 7.6, hemoglobin 13.6 and a platelet count is at 206, BUN is 18 with a creatinine 0.8 and sodium level is at 139. The patient is also on empiric antibiotic coverage with Zithromax. IV fluids is running at 130s and hour. On today's evaluation of 02/07/2023, the patient is feeling much better. No new complaints. Shortness of breath is improved considerably and the patient is currently on room air oxygen. Sodium is at 142, BUN is at 20 with a creatinine of 0.6. Potassium levels at 3.0. Objective - Vital Signs Vital signs: Vital Signs Temp 97.8 F 02/07/23 11:05 Pulse 85 02/07/23 11:40 Resp 16 02/07/23 11:05 BP 130/78 02/07/23 11:05 Pulse Ox 94 L 02/07/23 11:05 FiO2 Intake & Output 02/06/23 02/07/23 02/07/23 18:59 06:59 18:59 Intake Total 718 Output Total 900 725 Balance -182 -725 Intake: Oral 718 Output: Urine 900 725 Other: Voiding Method Indwelling Catheter Indwelling Catheter Indwelling Catheter - Exam GENERAL EXAM: Alert, 67-year-old white male appearing stated age, comfortable in no apparent distress. HEAD: Normocephalic and atraumatic EYES: Normal reaction of pupils, equal size. NOSE: Clear with pink turbinates. THROAT: No erythema or exudates. NECK: No masses, no JVD. CHEST: No chest wall deformity. LUNGS: Equal air entry with no diffuse wheezing heard throughout. Patient is currently on room air O2 CVS: S1 and S2 normal with no audible murmur, regular rhythm. No extra heart sounds. Tachycardic. ABDOMEN: No hepatosplenomegaly, active bowel sounds, no guarding or rigidity. SPINE: No scoliosis or deformity SKIN: No rashes CENTRAL NERVOUS SYSTEM: No focal deficits, tone is normal in all 4 extremities. EXTREMITIES: There is no peripheral edema, clubbing, or cyanosis. Peripheral pulses are intact. - Labs CBC & Chem 7: 02/06/23 07:45 02/07/23 08:26 Labs: Abnormal Lab Results - Last 24 Hours (Table) 02/06/23 02/06/23 02/07/23 Range/Units 16:23 19:29 06:03 Creatinine (0.66-1.25) mg/dL Glucose (74-99) mg/dL POC Glucose (mg/dL) 162 H 158 H 161 H (70-110) mg/dL Magnesium (1.6-2.3) mg/dL 02/07/23 02/07/23 Range/Units 08:26 11:38 Creatinine 0.60 L (0.66-1.25) mg/dL Glucose 217 H (74-99) mg/dL POC Glucose (mg/dL) 175 H (70-110) mg/dL Magnesium 2.5 H (1.6-2.3) mg/dL Assessment and Plan Assessment: acute COPD exacerbation, chest x-ray shows no acute cardiopulmonary or evidence of pneumonia. Patient is improved considerably and is ambulating and hypoxemic respiratory failure is improved and recovered Acute hypoxemic respiratory failure, secondary to above, recovered Chronic ongoing tobacco dependence SVT, self-limiting, likely exacerbated by above Urinary retention, currently has indwelling urinary catheter, recovered Plan: Stop the IV Solu-Medrol and start the patient prednisone burst taper starting at 40 mg Continue Symbicort this should be continued on outpatient basis Patient has a home nebulizer Albuterol HFA [id number] as needed We'll need outpatient follow-up regarding COPD management Echocardiogram shows a preserved LV function No need for home O2 and the patient can be discharged home today.
[2023-02-07 16:30] VITALS: BP 136/66; TEMP 98.1
[2023-02-07 16:54] LABS: Glucose,Whole Blood 122 mg/dL (70-110)
[2023-02-07 18:21] VITALS: PULSE 87
== END 2023-02-07 18:28 | disposition home or self-care (01) | DRG 189 ==
LOC: EC 21:10 → 3SCARD 23:29
PROVIDERS: ADMIT Hospitalist; ATTEND Hospitalist
DX: J96.01 Acute respiratory failure with hypoxia (principal); I47.10 Supraventricular tachycardia, unspecified; J44.1 Chronic obstructive pulmonary disease with (acute) exacerbation; F17.210 Nicotine dependence, cigarettes, uncomplicated; I10 Essential (primary) hypertension; N40.1 Benign prostatic hyperplasia with lower urinary tract symptoms; R33.8 Other retention of urine; Z11.52 Encounter for screening for COVID-19; Z88.2 Allergy status to sulfonamides; Z79.899 Other long term (current) drug therapy
CPT/HCPCS: 36415; 71045; 80048; 80053; 83605; 83690; 83735; 83880; 84100; 84443; 84484; 85025; 85027; 85379; 85610; 85730; 86140; 87636; 93005; 93306; 94640; 94760; 96361; 96374; 96375; 99291